=== PATIENT | female | born 1960 | race Caucasian/White ===

== ENCOUNTER 2022-03-23 14:06 | Emergency (ER) | payer MEDICAID | END 2022-03-23 15:52 | disposition home or self-care (01) | LOC: JP.ED 14:06 | DX: E87.1 Hypo-osmolality and hyponatremia (principal); I10 Essential (primary) hypertension; Z72.0 Tobacco use; Z79.899 Other long term (current) drug therapy | CPT/HCPCS: 99283 ==

== ENCOUNTER 2022-06-09 06:02 | Day surgery (SDC) | payer MEDICAID ==
[2022-06-09] MEDS ORDERED: Lidocaine 1% with EPINEPHrine 1:100,000 50 ML MDV ONE (06:33)
[2022-06-09] MEDS ORDERED: Bupivacaine 0.5% 50 ML MDV ONE (06:33)
[2022-06-09] MEDS ORDERED: Lactated Ringers 1,000 ML IV SCH (07:00)
[2022-06-09] MEDS ORDERED: Acetaminophen 500 MG Tab PO ONE (07:00)
[2022-06-09] MEDS ORDERED: ceFAZolin 2 GM in Premix Bag 1 BAG IV ONE (07:30)
[2022-06-09] MEDS ORDERED: fentaNYL 100 MCG/2 ML SDV ONE (07:31)
[2022-06-09] MEDS ORDERED: Propofol 200 MG/20 ML SDV ONE ×2 (07:31→08:33)
[2022-06-09] MEDS ORDERED: Midazolam 1 MG/ML 2 ML SDV ONE (07:55)
[2022-06-09 08:16] LABS: ESTIMATED GFR 106 mL/min (>60)
[2022-06-09] MEDS ORDERED: Magnesium Sulfate/Water 2 GM in Premix Bag 1 BAG IV ONE (10:00)
== END 2022-06-09 11:45 | disposition home or self-care (01) ==
LOC: JP.SDS 06:02
PROVIDERS: ATTEND Student in an Organized Health Care Education/Training Program
DX: C79.82 Secondary malignant neoplasm of genital organs (principal); C80.1 Malignant (primary) neoplasm, unspecified; F17.210 Nicotine dependence, cigarettes, uncomplicated; F32.9 Major depressive disorder, single episode, unspecified; R73.02 Impaired glucose tolerance (oral); E83.42 Hypomagnesemia; E87.1 Hypo-osmolality and hyponatremia; E78.5 Hyperlipidemia, unspecified; Z79.899 Other long term (current) drug therapy; Z98.890 Other specified postprocedural states
CPT/HCPCS: 36415; 76998; 77001; 80053; 83735; 84100; 85027; 85610; 86850; 86900; 86901; A9270-GY; C1788; J0690; J1642; J2250; J2704; J3010; J3475; J3490; J7120

== ENCOUNTER 2022-07-01 12:45 | Emergency (ER) | payer MEDICAID ==
[2022-07-01] MEDS ORDERED: Sodium Chloride 0.9% 1,000 ML IV SCH (14:00)
[2022-07-01] MEDS ORDERED: Sodium Chloride 0.9% 10 ML SDV FLUSH ONE (14:12)
[2022-07-01] MEDS ORDERED: Iopamidol 612 MG/ML 100 ML Bottle IV PRN (14:12)
[2022-07-01] MEDS ORDERED: Sodium Chloride 0.9% 100 ML IV SCH (14:15)
== END 2022-07-01 17:30 | disposition home or self-care (01) ==
LOC: JP.ED 12:45
DX: C53.9 Malignant neoplasm of cervix uteri, unspecified (principal); C79.9 Secondary malignant neoplasm of unspecified site; I10 Essential (primary) hypertension; Z79.82 Long term (current) use of aspirin; Z79.899 Other long term (current) drug therapy; Z72.0 Tobacco use
CPT/HCPCS: 74177; 96360; 96361; 99284; J3490; J7030; Q9967

== ENCOUNTER 2022-07-21 13:23 | Inpatient (IN) | payer MEDICAID ==
[2022-07-21] MEDS ORDERED: HYDROmorphone 1 MG/ML Syringe IVPUSH ONE (13:59)
[2022-07-21] MEDS ORDERED: Sodium Chloride 0.9% 1,000 ML IV SCH (14:00)
[2022-07-21] MEDS ORDERED: Iopamidol 612 MG/ML 100 ML Bottle IV PRN (14:10)
[2022-07-21] MEDS ORDERED: Sodium Chloride 0.9% 10 ML Syringe FLUSH PRN (14:10)
[2022-07-21] MEDS: Sodium Chloride 0.9% 50 ML IV ONE (14:31)
[2022-07-21] MEDS ORDERED: Nicotine 14 MG/24 Hr Patch TRDERM PRN (16:49)
[2022-07-21] MEDS ORDERED: Sennosides/Docusate Sodium 50-8.6 MG Tab PO PRN (16:49)
[2022-07-21] MEDS ORDERED: Magnesium Hydroxide 400 MG/5 ML Susp 30 ML Cup PO PRN (16:49)
[2022-07-21] MEDS ORDERED: Acetaminophen 325 MG Tab PO PRN (16:49)
[2022-07-21] MEDS ORDERED: HYDROmorphone 1 MG/ML Syringe IVPUSH PRN (16:49)
[2022-07-21] MEDS ORDERED: Ondansetron 4 MG Tab.DIS PO PRN (16:49)
[2022-07-21] MEDS ORDERED: Enalaprilat 1.25 MG/ML SDV IVPUSH PRN (16:56)
[2022-07-21] MEDS: HYDROmorphone 0.5 MG/0.5 ML Syringe IVPUSH PRN ×3 (17:19→22:29)
[2022-07-21] MEDS: hydrALAZINE 20 MG/ML SDV IVPUSH PRN (18:11)
[2022-07-21] MEDS: Dextrose 5%-0.9% NaCl 1,000 ML IV SCH (18:35)
[2022-07-21] MEDS: Pantoprazole 40 MG Vial IV SCH (18:38)
[2022-07-21] MEDS ORDERED: Enoxaparin 40 MG/0.4 ML Syringe SUBCUT SCH (20:00)
[2022-07-21] MEDS: atorvaSTATin 10 MG Tab PO SCH (21:38)
[2022-07-21] MEDS: Venlafaxine 75 MG Cap.ER PO SCH (21:38)
[2022-07-22] MEDS: HYDROmorphone 0.5 MG/0.5 ML Syringe IVPUSH PRN ×2 (01:59→04:47)
[2022-07-22 05:41] LABS: HEMATOCRIT 23.9 % (34.3-46.0); HEMOGLOBIN 8.6 g/dL (11.2-15.5); MEAN CORPUSCULAR HEMOGLOBIN 37.1 pg (31.6-35.5); RED BLOOD CELL COUNT 2.32 M/uL (3.77-5.24); WHITE BLOOD CELL COUNT,WBC 3.3 K/uL (3.2-11.0)
[2022-07-22 06:01] LABS: A/G RATIO 1.2 (1.2-2.2); ALANINE AMINOTRANSFERASE,ALT 169 U/L (12-78); ALBUMIN 3.6 g/dL (3.4-5.0); ALKALINE PHOSPHATASE 220 U/L (46-116); ASPARTATE AMNIOTRANSFERASE,AST 67 U/L (15-37); BILIRUBIN TOTAL 0.6 mg/dL (0.2-1.0); BLOOD UREA NITROGEN,BUN 7 mg/dL (7-18); CALCIUM 8.8 mg/dL (8.5-10.1); CARBON DIOXIDE,CO2 29 mmol/L (21-32); CHLORIDE,CL 89 mmol/L (100-108); CREATININE 0.5 mg/dL (0.6-1.0); EST CRCL DRUG DOSING (CG) 92.82 mL/min; ESTIMATED GFR 106 mL/min (>60); GLUCOSE RANDOM 129 mg/dL (74-106); PROTEIN TOTAL,TP 6.7 g/dL (6.4-8.2); SODIUM,NA 128 mmol/L (140-148)
[2022-07-22 06:08] LABS: ANION GAP 12.9 mmol/L (5.0-14.0); POTASSIUM,K 2.9 mmol/L (3.6-5.2)
[2022-07-22] MEDS ORDERED: Potassium Chloride 10 MEQ in Premix Bag 1 BAG IV SCH (07:00)
[2022-07-22] MEDS ORDERED: diphenhydrAMINE 25 MG Cap PO PRN (07:00)
[2022-07-22] MEDS ORDERED: Ondansetron 4 MG/2 ML SDV IVPUSH PRN (07:00)
[2022-07-22] MEDS ORDERED: Naloxone 0.4 MG/ML SDV IVPUSH PRN (07:00)
[2022-07-22] MEDS ORDERED: diphenhydrAMINE 50 MG/ML SDV IVPUSH PRN (07:00)
[2022-07-22] MEDS: HYDROmorphone/Normal Saline 6 MG/30 ML PCA Vial IV PRN ×2 (07:29→20:34)
[2022-07-22] MEDS: Dextrose 5%-0.9% NaCl 1,000 ML IV SCH (08:00)
[2022-07-22] MEDS: Potassium Chloride 10 MEQ in Premix Bag 1 BAG IV SCH ×8 (08:37→17:17)
[2022-07-22] MEDS ORDERED: Venlafaxine 75 MG Cap.ER PO SCH (09:00)
[2022-07-22] MEDS ORDERED: DILTIAZEM HCL 120 MG PO SCH (09:00)
[2022-07-22] MEDS: Diltiazem 180 MG Cap.CD PO SCH (09:42)
[2022-07-22] MEDS: Ondansetron 4 MG/2 ML SDV IV PRN ×2 (13:37→23:53)
[2022-07-22] MEDS: Pantoprazole 40 MG Vial IV SCH (17:19)
[2022-07-22] MEDS ORDERED: LORazepam 2 MG/ML SDV IVPUSH PRN (19:15)
[2022-07-22] MEDS: atorvaSTATin 10 MG Tab PO SCH (20:10)
[2022-07-22] MEDS: Venlafaxine 75 MG Cap.ER PO SCH (20:10)
[2022-07-22] MEDS: hydrALAZINE 20 MG/ML SDV IVPUSH PRN (20:17)
[2022-07-23 04:55] LABS: HEMATOCRIT 28.3 % (34.3-46.0); HEMOGLOBIN 10.2 g/dL (11.2-15.5); MEAN CORPUSCULAR HEMOGLOBIN 34.7 pg (31.6-35.5); MEAN CORPUSCULAR VOLUME 96.3 fL (81.4-99.0); RED BLOOD CELL COUNT 2.94 M/uL (3.77-5.24); WHITE BLOOD CELL COUNT,WBC 2.5 K/uL (3.2-11.0)
[2022-07-23 05:20] LABS: A/G RATIO 1.1 (1.2-2.2); ALANINE AMINOTRANSFERASE,ALT 140 U/L (12-78); ALBUMIN 3.5 g/dL (3.4-5.0); ALKALINE PHOSPHATASE 220 U/L (46-116); ASPARTATE AMNIOTRANSFERASE,AST 50 U/L (15-37); BILIRUBIN TOTAL 0.9 mg/dL (0.2-1.0); BLOOD UREA NITROGEN,BUN 5 mg/dL (7-18); CALCIUM 8.7 mg/dL (8.5-10.1); CARBON DIOXIDE,CO2 29 mmol/L (21-32); CHLORIDE,CL 86 mmol/L (100-108); CREATININE 0.5 mg/dL (0.6-1.0); EST CRCL DRUG DOSING (CG) 92.82 mL/min; ESTIMATED GFR 106 mL/min (>60); GLUCOSE RANDOM 134 mg/dL (74-106); MAGNESIUM 1.5 mg/dL (1.8-2.4); PHOSPHORUS 2.6 mg/dL (2.5-4.9); POTASSIUM,K 3.1 mmol/L (3.6-5.2); PRO B-TYPE NATRIUR PEPT,BNPPRO 240 pg/mL (5-125); PROTEIN TOTAL,TP 6.7 g/dL (6.4-8.2); SODIUM,NA 123 mmol/L (140-148)
[2022-07-23 05:22] LABS: ANION GAP 11.1 mmol/L (5.0-14.0)
[2022-07-23] MEDS: Dextrose 5%-0.9% NaCl 1,000 ML IV SCH (05:30)
[2022-07-23] MEDS ORDERED: Potassium Chloride 10 MEQ in Premix Bag 1 BAG IV ONE (09:00)
[2022-07-23] MEDS ORDERED: cefOXitin 2 GM in Sodium Chloride 0.9% 50 ML IV ONE (09:15)
[2022-07-23] MEDS: HYDROmorphone/Normal Saline 6 MG/30 ML PCA Vial IV PRN (09:16)
[2022-07-23] MEDS: Diltiazem 180 MG Cap.CD PO SCH (09:20)
[2022-07-23] MEDS ORDERED: Magnesium Sulfate/Water 2 GM in Premix Bag 1 BAG IV ONE (10:30)
[2022-07-23] MEDS ORDERED: Morphine 10 MG/0.5 ML Oral Syringe BUCCAL PRN ×2 (11:29)
[2022-07-23] MEDS ORDERED: Methadone 10 MG Tab PO ONE (12:00)
== END 2022-07-23 13:35 | disposition hospice, home (50) | DRG 389 ==
LOC: JP.ED 13:23 → JP.MS 16:50
PROVIDERS: ADMIT Internal Medicine; ATTEND Internal Medicine
DX: K56.699 Other intestinal obstruction unspecified as to partial versus complete obstruction (principal); C78.7 Secondary malignant neoplasm of liver and intrahepatic bile duct; C79.51 Secondary malignant neoplasm of bone; E87.1 Hypo-osmolality and hyponatremia; R64 Cachexia; Z68.1 Body mass index [BMI] 19.9 or less, adult; C53.9 Malignant neoplasm of cervix uteri, unspecified; F17.210 Nicotine dependence, cigarettes, uncomplicated; E87.6 Hypokalemia; Z20.822 Contact with and (suspected) exposure to COVID-19; I10 Essential (primary) hypertension; H54.7 Unspecified visual loss; F32.A Depression, unspecified; Z98.890 Other specified postprocedural states; Z79.82 Long term (current) use of aspirin; Z79.899 Other long term (current) drug therapy; Z86.010 Personal history of colon polyps
CPT/HCPCS: 36415; 36430; 74177; 74177-26; 80053; 83735; 83880; 84100; 85027; 86850; 86900; 86901; 86920; 86922; 96361; 96374; 99223; 99233; 99239; 99285; 99285-25; A9270-GY; C9113; J0360; J1170; J1650; J2060; J2405; J3475; J3480; J3490; J7030; P9016; Q9967; U0002